=== PATIENT | male | born 1960 | race Two or more races ===

== ENCOUNTER 2019-01-05 20:17 | Inpatient (IN) | payer MEDICAID ==
[~2019-01-05] VITALS: Ht 177.8 cm; Wt 80.3 kg
[2019-01-05 20:30] VITALS: BP 139/89
--- NOTE | 2019-01-05 20:30 | NUR ---
TELE ADMISSION NOTE PATIENT IS A DIRECT ADMIT FROM [facility]. PATIENT ARRIVED ON UNIT AT 2030 IN [facility]. PATIENT ABLE TO AMBULATE TO BED. GAIT UNSTEADY STANDBY ASSISTANCE NEEDED. PATIENT HAS NO S/S OF ACUTE DISTRESS. PATIENT DENIES CHEST PAIN/SOB/N/V/D/C/ PAIN/ DISCOMFORT. PATIENT HAS RFA 20 G PATENT AND INTACT NO S/S OF INFECTION. PATIENT A/O X 4. PATIENT ORIENTED TO HOSPITAL AND SAFETY PRECAUTIONS. BED IN LOWEST LOCKED POSITION, SIDE RAILS UP X 2. RN WILL CONTINUE TO MONITOR.
[2019-01-05] MEDS ORDERED: ASPI-1152 PO (21:21)
[2019-01-05] MEDS ORDERED: METO25TA6 PO (21:21)
[2019-01-05] MEDS ORDERED: CLON0.5T12 PO (21:21)
[2019-01-05] MEDS ORDERED: SIMV40TA5 PO (21:21)
[2019-01-05] MEDS ORDERED: APIX5TAB PO (21:21)
[2019-01-05] MEDS ORDERED: RANI150T8 PO (21:21)
[2019-01-05] MEDS ORDERED: LISI-603 PO (21:21)
[2019-01-05] MEDS ORDERED: MAGNESIUM HYDROXIDE 30 ML UDC PO PRN (23:00)
[2019-01-05] MEDS ORDERED: HYDROCODONE/APAP 5/325MG 1 EACH TABLET PO PRN (23:00)
[2019-01-05] MEDS ORDERED: ACETAMINOPHEN 325 MG TABLET PO PRN (23:00)
[2019-01-05] MEDS ORDERED: ZOLPIDEM TARTRATE 5 MG TABLET PO PRN (23:00)
[2019-01-05] MEDS ORDERED: ONDANSETRON HCL/PF 4 MG/2 ML VIAL IVP PRN (23:00)
--- NOTE | 2019-01-05 23:42 | NUR ---
JAVA SWING DEVELOPER NOTE MD AT BEDSIDE, EVALUATING PATIENT, MRSA SWAB COLLECTED. PER MD, "I WILL BE PUTTING IN ADDITIONAL ORDERS," IN REGARDS TO PATIENT USE OF ALCOHOL. PATIENT DENIES ALCOHOLISM, BUT PT REPORTS DRINKING HALF A LITER OF VODKA DAILY.
[2019-01-06 00:14] VITALS: BP 120/81
[2019-01-06 04:00] VITALS: BP 108/76
[2019-01-06 08:00] VITALS: BP 119/80
--- NOTE | 2019-01-06 08:00 | NUR ---
received patient in bed alert and orient, breayhing not labored , pt is alert oriented x4 ROM all extremities , with little weakness to left leg , pt denies any pain heplock to rt Ac intact and flushed good , no redness at site , Sr x2 up call light within reach
[2019-01-06] MEDS: PANTOPRAZOLE 40 MG TABLET.DR PO SCH (08:14)
[2019-01-06 08:24] LABS: BASOPHILS % (AUTO) 0.5 % (0.0-2.0); EOSINOPHILS % (AUTO) 2.2 % (0.0-6.0); HEMATOCRIT 43 % (39-51); HEMOGLOBIN 15.2 g/dL (13.5-17.5); LYMPHOCYTES # (AUTO) 1.8 /CMM (0.8-4.8); LYMPHOCYTES % (AUTO) 30.6 % (20.0-44.0); MEAN CORPUSCULAR HGB CONC 35 g/dl (31.0-36.0); MEAN CORPUSCULAR VOLUME 118 fL (80-96); MONOCYTES # (AUTO) 0.5 /CMM (0.1-1.30); MONOCYTES % (AUTO) 8.8 % (2.0-12.0); NEUTROPHILS # (AUTO) 3.3 /CMM (1.8-8.9); NEUTROPHILS % (AUTO) 57.9 % (43.0-81.0); PLATELET COUNT (AUTO) 155 /CMM (150-450); RED BLOOD CELL COUNT(AUTO) 3.65 MIL/uL (4.5-6.0); WHITE BLOOD COUNT (AUTO) 5.8 K/uL (4.3-11.0)
[2019-01-06] MEDS: clonazePAM 0.5 MG TABLET PO PRN ×2 (08:27→21:39)
[2019-01-06] MEDS: ASPIRIN EC 81 MG TABLET.DR PO SCH (08:27)
[2019-01-06] MEDS: LISINOPRIL (20MG) 20 MG TABLET PO SCH (08:28)
[2019-01-06] MEDS: APIXABAN 5 MG TABLET PO SCH ×2 (08:29→16:59)
[2019-01-06] MEDS: METOPROLOL TARTRATE 25 MG TABLET PO SCH ×2 (08:29→16:59)
[2019-01-06 08:36] LABS: BILIRUBIN,TOTAL 1.2 mg/dL (0.2-1.0); CALCIUM, SERUM 8.4 mg/dL (8.5-10.1); CREATININE 0.9 mg/dL (0.6-1.3); MAGNESIUM 1.4 mg/dL (1.8-2.4); PHOSPHORUS 2.7 mg/dL (2.5-4.9); POTASSIUM 3.4 mmol/L (3.5-5.1); TOTAL PROTEIN, SERUM 6.4 g/dL (6.4-8.2)
[2019-01-06 08:44] LABS: BAND % (MANUAL) 1 % (0.0-5.0); EOSINOPHILS % (MANUAL) 3 % (0-4); LYMPHOCYTES % (MANUAL) 29 % (16-48); MONOCYTES % (MANUAL) 9 % (0-11.0); NEUTROPHILS % (MANUAL) 58 (42-76)
[2019-01-06 10:57] LABS: THYROID STIMULATING HORMONE 2.977 uIU/mL (0.358-3.74)
[2019-01-06] MEDS ORDERED: POTASSIUM CHLORIDE 20 MEQ TAB.PRT.SR PO SCH (11:00)
[2019-01-06] MEDS: Magnesium 1GM/D5W 100ML PREMIX 100 ML IV SCH ×4 (11:42→14:21)
[2019-01-06 12:00] VITALS: BP 126/73
[2019-01-06 16:00] VITALS: BP 123/79
--- NOTE | 2019-01-06 16:10 | NUR ---
rn note 4 grams mag sulfate completed for level of 1.4 patient tolerated infusing well , resting in bed no distress noted
--- NOTE | 2019-01-06 19:38 | NUR ---
TANK SYSTEMS MAINTAINER NOTE PATIENT REPORT GIVEN BEDSIDE. PATIENT A/OX 4. PATIENT BODY LANGUAGE DENOTES FRUSTRATION/ANGER WITH ARMS CROSSED AND POUTING. PATIENT EXPRESSED THAT HE IS VERY FRUSTRATED "WITH YOU GUYS, THERE WAS A LOT GOING ON AND I DON'T WANT TO TALK ABOUT IT." RN EXPRESSED UNDERSTANDING AND STATED THAT IF THERE WAS ANYTHING HE NEEDED DO NOT HESITATE TO ASK. PATIENT REMAINED SILENT. PATIENT HAS NO S/S OF DISTRESS. NO C/O DISCOMFORT. PATIENT SR ON THE MONITOR. RN WILL CONTINUE TO MONITOR. SAFETY PRECAUTIONS IN PLACE.
[2019-01-06 20:00] VITALS: BP 125/76
--- NOTE | 2019-01-06 20:55 | NUR ---
RECREATIONAL DIRECTOR NOTE PATIENT EXPRESSED TO RN AND SUPERVISOR GRINDING THE REASONS FOR FRUSTRATION. PATIENT STATED HE HAS SISTER AT HOME THAT HE TAKES CARE OF. ROQUE AVILEZ TOLD HIM, THAT HE WAS ONLY GOING TO RECEIVE A CT HERE AT [place] AND THEN BE DISCHARGED. HE ALSO STATED THAT NO MD HAS SEEN, OTHER THAN HIS ADMISSION DR MORGAN. THERE ARE CURRENTLY NO MD PROGRESS NOTES LISTED IN HIS CHART. PATIENT SAYS HE WILL LEAVE [facility] IF NO ONE SEE'S HIM. ADMITTING MD MORGAN NOTIFIED. Addendum: 01/06/19 at 2142 by HUMA ROBB RN EDDIE CALLED TO SAY HE WILL VISIT THE PATIENT BEFORE 2300 TONIGHT AND WILL NOTIFY NEURO FOR CONSULT TOMORROW. PATIENT NOTIFIED OF PLAN OF CARE AND CALMED DOWN. PATIENT GIVEN KLONOPIN FOR ANXIETY PER PRN ORDER AND STATES HE FEELS MUCH BETTER.
[2019-01-06] MEDS: SIMVASTATIN 40 MG TABLET PO SCH (21:39)
--- NOTE | 2019-01-06 22:46 | NUR ---
MEDICAL MASSAGE THERAPIST NOTE PATIENT TAKEN FOR CT
--- NOTE | 2019-01-06 23:00 | NUR ---
TILE SORTER NOTE PATIENT RETURNED FROM CT, DR MORGAN PRESENT AT BEDSIDE.
[2019-01-06] MEDS ORDERED: LORAZEPAM INJ 2 MG/ML VIAL IV PRN (23:30)
[2019-01-07] VITALS: BP 120/70
[2019-01-07 04:00] VITALS: BP 105/64
--- NOTE | 2019-01-07 06:49 | NUR ---
HEART DOCTOR NOTE PATIENT STABLE NO S/S OF DISTRESS. PATIENT SR ONT HE MONITOR SAFETY PRECAUTIONS IN PLACE. POC ENDORSED TO AM FOR CASEY.
--- NOTE | 2019-01-07 07:30 | NUR ---
TELE1/RN ROUNDS - DR. TSE (NEUROLOGIST) PT SEEN AND EXAMINED BY DR. TSE, PER MD WILL ORDER FOR MRI PROCEDURE. NO NEW ORDER RECEIVED AT THIS TIME. MONITORING CONTINUED.
[2019-01-07 07:46] LABS: BASOPHILS % (AUTO) 0.4 % (0.0-2.0); EOSINOPHILS % (AUTO) 2.2 % (0.0-6.0); HEMATOCRIT 43 % (39-51); HEMOGLOBIN 15.2 g/dL (13.5-17.5); LYMPHOCYTES # (AUTO) 1.8 /CMM (0.8-4.8); LYMPHOCYTES % (AUTO) 27.1 % (20.0-44.0); MEAN CORPUSCULAR HGB CONC 36 g/dl (31.0-36.0); MEAN CORPUSCULAR VOLUME 118 fL (80-96); MONOCYTES # (AUTO) 0.6 /CMM (0.1-1.30); MONOCYTES % (AUTO) 8.4 % (2.0-12.0); NEUTROPHILS # (AUTO) 4.1 /CMM (1.8-8.9); NEUTROPHILS % (AUTO) 61.9 % (43.0-81.0); PLATELET COUNT (AUTO) 158 /CMM (150-450); RED BLOOD CELL COUNT(AUTO) 3.61 MIL/uL (4.5-6.0); WHITE BLOOD COUNT (AUTO) 6.7 K/uL (4.3-11.0)
[2019-01-07 08:00] VITALS: BP 113/70
[2019-01-07 08:00] LABS: CALCIUM, SERUM 8.4 mg/dL (8.5-10.1); CREATININE 0.9 mg/dL (0.6-1.3); PHOSPHORUS 2.9 mg/dL (2.5-4.9); POTASSIUM 3.9 mmol/L (3.5-5.1); TOTAL PROTEIN, SERUM 6.5 g/dL (6.4-8.2)
--- NOTE | 2019-01-07 08:00 | NUR ---
TELE1/RN AM SHIFT INITIAL NOTES RECEIVED PT AWAKE SITTING IN BED, PT A/O X 4, VERBALIZED NO SYMPTOMS OF TIA, ALSO NOTED NO ACUTE SIGNS OF TIA. PT IS PLEASANT AND CONVERSANT. DISCUSSED THE PLAN OF CARE TODAY AND WHAT PROCEDURES TO BE EXPECTED. ON ROOM AIR SATURATING @ 98%, LUNG SOUNDS CLEAR. ON TELE WITH SINUS RHYTHM, HR 69. IV SITE FLUSHED, PATENT WITH NO S/S OF INFECTION, SL. PT IS COMFORTABLE, SCHEDULED AM MEDS TO BE GIVEN. CL WITHIN REACHED AND SAFETY MAINTAINED. ON GOING MONITORING.
[2019-01-07] MEDS: ASPIRIN EC 81 MG TABLET.DR PO SCH (08:20)
[2019-01-07] MEDS: MULTIVITAMINS,THERAGRAN 1 UDTAB TABLET PO SCH (08:20)
[2019-01-07] MEDS: FOLIC ACID 1 MG TABLET PO SCH (08:20)
[2019-01-07] MEDS: THIAMINE HCL 100 MG TABLET PO SCH (08:20)
[2019-01-07] MEDS: PANTOPRAZOLE 40 MG TABLET.DR PO SCH (08:20)
[2019-01-07] MEDS: METOPROLOL TARTRATE 25 MG TABLET PO SCH ×2 (08:21→16:43)
[2019-01-07] MEDS: APIXABAN 5 MG TABLET PO SCH ×2 (08:21→16:43)
[2019-01-07] MEDS: LISINOPRIL (20MG) 20 MG TABLET PO SCH (08:21)
[2019-01-07] MEDS: clonazePAM 0.5 MG TABLET PO PRN (08:25)
--- NOTE | 2019-01-07 09:30 | NUR ---
TELE1/RN CAROTID DUPLEX TREASURY ASSISTANT AT PT'S BEDSIDE FOR CAROTID IMAGING. MONITORING.
--- NOTE | 2019-01-07 11:10 | NUR ---
TELE1/RN MATERIALS TECHNICIAN CONSULT PT SEEN BY MATERIALS TECHNICIAN RONY STONE PT IS NOT INTERESTED TO JOIN ANY GROUP THERAPY, CHARGE NURSE MADE AWARE.
--- NOTE | 2019-01-07 11:14 | NUR ---
Social service consult requested by Dr. Stallworth for alcohol use. Pt. is a 58 year old male who was admitted to [facility] from [facility] for TIA. SW met with pt. bedside. Pt. is alert and oriented x 4. Pt. resides with his disabled sister and mother Jazlyn Keith. at [id number] [place] [address] in [place]. 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 Pt. states he drinks 1/2 pint of vodka per day. However, pt. is not ready to admit he has an alcohol problem and stated, " everyone thinks I have a problem, but I don't." Pt. declined all alcohol program referrals that were offered to him. Pt. denies drug and cigarette use. Pt. states, " every other day he takes a puff of marijuana from his pipe." Pt. states he has Social Phobia and gets very anxious when he is in crowds. Pt. takes Klonopin for his anxiety. Pt. sees Dr. Ray, his psychiatrist every 3 months. Pt. denies any suicidal and homicidal ideations and visual/auditory hallucinations at this time. No other social service needs are requested at this time. KELLE updated pt's RN Pilar regarding pt. declining resources.
[2019-01-07 12:00] VITALS: BP 114/72
[2019-01-07 16:00] VITALS: BP_SYST 110; BP_DIAS 74; BP_DIAS 98
--- NOTE | 2019-01-07 17:00 | NUR ---
TELE1/RN AFTERNOON ROUNDS NO CHANGE OF CONDITION. ALL IMAGING TESTS NEGATIVE, PT SEEN BY TOVA DHALIWAL, FOR DISCHARGE PLANNING TOMORROW. MONITORING CONTINUED.
--- NOTE | 2019-01-07 18:58 | NUR ---
TELE1/RN AM SHIFT END NOTES ALL NEEDS MET. NO ACUTE CHANGE OF CONDITION NOTED DURING THE SHIFT. PT ENDORSED TO PM NURSE TO CONTINUE CARE. CL WITHIN REACHED AND SAFETY MAINTAINED.
--- NOTE | 2019-01-07 19:30 | NUR ---
MCAT TUTOR NOTE: RECEIVED PT ON BED ALERT AND ORIENTED X3. ABLE TO MAKE NEEDS KNOWN. NO ACUTE DISTRESS NOTED. NO COMPLAINTS OF PAIN OR DISCOMFORT AT THIS TIME. ON ROOM AIR, BREATHING EVEN AND UNLABORED WITH NORMAL RESPIRATIONS. SINUS RHYTHM ON TELE MONITOR HR 66BPM. KEPT CLEAN, DRY AND COMFORTABLE. CALL LIGHT PLACED WITHIN REACH. SAFETY AND FALL PRECAUTIONS OBSERVED AND MAINTAINED. WILL CONTINUE TO MONITOR PT.
[2019-01-07 20:00] VITALS: BP 112/73
[2019-01-07] MEDS: SIMVASTATIN 40 MG TABLET PO SCH (21:08)
[2019-01-08] VITALS: BP 112/69
[2019-01-08 04:00] VITALS: BP 104/62
--- NOTE | 2019-01-08 06:55 | NUR ---
DISHWASHER BUSSER NOTE: NO CHANGES NOTED THROUGHOUT THE SHIFT. NO ACUTE DISTRESS NOTED. DENIES PAIN AND DISCOMFORT AT THIS TIME. NO SOB NOTED. KEPT CLEAN, DRY AND COMOFORTABLE. CALL LIGHT PLACED WITHIN REACH. SAFETY AND FALL PRECAUTIONS OBSERVED AND MAINTAINED. WILL ENDORSE TO DAY SHIFT RN FOR CONTINUITY OF CARE.
[2019-01-08 08:00] VITALS: BP 109/70
[2019-01-08] MEDS: FOLIC ACID 1 MG TABLET PO SCH (08:07)
[2019-01-08] MEDS: APIXABAN 5 MG TABLET PO SCH (08:07)
[2019-01-08] MEDS: ASPIRIN EC 81 MG TABLET.DR PO SCH (08:07)
[2019-01-08] MEDS: THIAMINE HCL 100 MG TABLET PO SCH (08:07)
[2019-01-08] MEDS: PANTOPRAZOLE 40 MG TABLET.DR PO SCH (08:07)
[2019-01-08] MEDS: LISINOPRIL (20MG) 20 MG TABLET PO SCH (08:09)
[2019-01-08 08:11] VITALS: BP 109/70
[2019-01-08] MEDS: METOPROLOL TARTRATE 25 MG TABLET PO SCH (08:11)
[2019-01-08] MEDS: MULTIVITAMINS,THERAGRAN 1 UDTAB TABLET PO SCH (08:12)
[2019-01-08] MEDS: clonazePAM 0.5 MG TABLET PO PRN (09:01)
--- NOTE | 2019-01-08 10:10 | NUR ---
RN NOTE PT DISCHARGED HOME IN STABLE CONDITION, WITH MOTHER ANA MYRICK, VIA OWN TRANSPORTATION. EXIT CARE DONE, DISCHARGE INSTRUCTIONS PROVIDED TO PT, TEACHING DONE, PT VERBALIZED UNDERSTANDING, IV REMOVED, ID BAND REMOVED, PAPERS SIGNED AND COPY LEFT IN CHART, BELONGINGS AND HOME MEDS PROVIDED TO PT. PT SKIN INTACT. PT DISCOURAGED FROM DRIVING, SINCE HE GOT CLONAZEPAM EARLIER, AND PT VERBALIZED UNDERSTANDING AND REPORTED "MY MOTHER IS PICKING ME UP DRIVING ME HOME."
== END 2019-01-08 10:06 | disposition home or self-care (01) | DRG 48 ==
LOC: TELE1 20:17 → UNDODISIN 01-08 10:06
PROVIDERS: ADMIT Internal Medicine; ATTEND Nurse Practitioner Acute Care
DX: G62.1 Alcoholic polyneuropathy (principal); D75.89 Other specified diseases of blood and blood-forming organs; E87.6 Hypokalemia; Z86.73 Personal history of transient ischemic attack (TIA), and cerebral infarction without residual deficits; F10.239 Alcohol dependence with withdrawal, unspecified; Y90.9 Presence of alcohol in blood, level not specified; R29.700 NIHSS score 0; Z79.82 Long term (current) use of aspirin; Z79.899 Other long term (current) drug therapy; Z88.1 Allergy status to other antibiotic agents; R26.9 Unspecified abnormalities of gait and mobility; F41.9 Anxiety disorder, unspecified; I10 Essential (primary) hypertension; I25.10 Atherosclerotic heart disease of native coronary artery without angina pectoris; Z91.81 History of falling; Z86.711 Personal history of pulmonary embolism; Z95.5 Presence of coronary angioplasty implant and graft; Z79.01 Long term (current) use of anticoagulants
CPT/HCPCS: 36415; 70450-TC; 70551-TC; 80053-TC; 80061-TC; 83540-TC; 83735-TC; 84100-TC; 84443-TC; 85025-TC; 87081-TC; 92521; 93880-TC; G0378; J3475